=== PATIENT | male | born 1970 | race Caucasian/White ===

== ENCOUNTER 2018-04-12 13:36 | Emergency (ER) | payer MEDICAID ==
[~2018-04-12] VITALS: Ht 180.3 cm; Wt 125.0 kg
[2018-04-12 14:04] VITALS: BP 161/89
--- NOTE | 2018-04-12 14:43 | NUR ---
PT HERE FOR RIGHT LOWER DENTAL PAIN, PT SENT HERE BY ORAL SURGEON. PT RESTING IN BED. REPROTS MODERATE PAIN TO LOWER RIGHT MOLARS.
[2018-04-12] MEDS ORDERED: HYDROcodone/APAP 5/325 TABLET PO ONE (15:00)
[2018-04-12] MEDS ORDERED: ONDANSETRON ODT 4 MG PO ONE (15:00)
[2018-04-12] MEDS ORDERED: HYDROcodone/APAP 5/325 TABLET ONE (15:01)
[2018-04-12] MEDS ORDERED: ONDANSETRON ODT 4 MG ONE (15:01)
--- NOTE | 2018-04-12 15:16 | NUR ---
Patient/Caregiver given discharge instructions and they have confirmed that they understand the instructions. Patient ambulatory with steady gait.
== END 2018-04-12 15:17 | disposition home or self-care (01) ==
LOC: ED 15:16
DX: K02.9 Dental caries, unspecified (principal); K08.89 Other specified disorders of teeth and supporting structures
CPT/HCPCS: 99283; Q0162